=== PATIENT | male | born 1945 | race Caucasian/White ===

== ENCOUNTER 2019-02-24 00:49 | Emergency (ER) | payer MEDICARE ==
[~2019-02-24] VITALS: Ht 177.8 cm; Wt 97.7 kg
[~2019-02-24 00:49] MED LIST: ALLEGRA180 MG PO; CALCIUM600 M3 PO; GLUCOSAMINE1500 MG PO; L-LYSINE1000 M1 PO; PANTOPRAZOLE SO40 MG PO; TAMSULOSIN0.4 MG PO; VITAMIN D-31000 UNI1 PO
[2019-02-24 01:48] LABS: HEMOGLOBIN 13.4 g/dl (14.0-18.0); IMMATURE GRANULOCYTES 0.2 % (0.0-5.0); MEAN CELL VOLUME 87.8 fL CALC (80.0-100.0); MEAN CORPUSCULAR HGB 30.2 pG CALC (26.0-32.0); MEAN CORPUSCULAR HGB CONC 34.4 g/L CALC (32.0-36.0); NEUT# 3.89 thou/uL (1.82-7.42); RED BLOOD COUNT 4.44 mill/uL (4.70-6.10); RED CELL DISTRI WIDTH 12.5 % (11.5-15.5)
[2019-02-24 01:59] LABS: ALBUMIN 3.6 g/dL (3.2-5.0); ALKALINE PHOSPHATASE 87 u/l (38-126); BUN 13 mg/dL (8-23); BUN/CREATININE RATIO 18 (12-20 (CALC)); CARBON DIOXIDE 25 mmol/l (22-30); CHLORIDE 106 mmol/l (95-108); CREATININE 0.7 mg/dL (0.7-1.3); GFR > 60 ML/MIN (>=60 (CALC)); GFR FOR AFR.AMER. > 60 ML/MIN (>=60 (CALC)); SGOT/AST 33 u/l (19-48); SODIUM 139 mmol/l (137-146); TOTAL PROTEIN 6.1 g/dL (6.3-8.2)
[2019-02-24 02:05] LABS: ANION GAP 11 (6-22 (CALC)); BILIRUBIN, TOTAL 0.5 mg/dL (0.0-1.4); POTASSIUM 2.8 mmol/l (3.5-5.1)
[2019-02-24 02:10] LABS: MYOGLOBIN 74 ng/mL (0 - 121)
[2019-02-24] MEDS ORDERED: K-DUR/KLOR-CON20 MEQ PO (02:42)
[2019-02-24 02:49] LABS: URINE BILIRUBIN - DIPSTICK NEGATIVE (NEGATIVE); URINE BLOOD DIPSTICK TRACE-INTACT (NEGATIVE); URINE COLOR YELLOW; URINE GLUCOSE - DIPSTICK NEGATIVE (NEGATIVE); URINE KETONE NEGATIVE (NEGATIVE); URINE LEUK ESTERASE NEGATIVE (NEGATIVE); URINE NITRITE - DIPSTICK NEGATIVE (Negative); URINE PROTEIN - DIPSTICK NEGATIVE (NEG-TRACE); URINE SPECIFIC GRAVITY <=1.005; URINE UROBILINOGEN - DIPSTICK 0.2 E.U./dL (0.2)
[2019-02-24 05:30] VITALS: BP 130/70
== END 2019-02-24 05:30 | disposition home or self-care (01) ==
LOC: ED 00:49
PROVIDERS: Family Medicine
DX: R00.2 Palpitations (principal); E87.6 Hypokalemia